=== PATIENT | female | born 1980 | race Caucasian/White ===

== ENCOUNTER 2018-10-09 18:39 | Emergency (ER) | payer BC ==
[~2018-10-09] VITALS: Ht 157.5 cm; Wt 62.1 kg
[~2018-10-09 18:39] MED LIST: OMNIPAQUE 350 MG/ML, 100ML BOTTLE ONE
--- NOTE | 2018-10-09 18:59 | NUR ---
Dr. Bearden at bedside to evaluate pt.
[2018-10-09 19:04] LABS: BASOPHILS # (AUTO) 0.06 x10^3/uL (0-0.1); BASOPHILS % (AUTO) 1 % (0-1); EOSINOPHILS % (AUTO) 0 % (1-7); LYMPHOCYTES # (AUTO) 2.49 x10^3/uL (1-3.4); LYMPHOCYTES % (AUTO) 18 % (22-44); MD NO; MEAN CORPUSCULAR HEMOGLOBIN 31.1 pg (27.0-34.8); MEAN CORPUSCULAR HGB CONC 33.7 g/dL (32.4-35.8); MEAN CORPUSCULAR VOLUME 92.3 fL (80-100); MEAN PLATELET VOLUME 10.1 fL (7.4-10.4); MONOCYTES # (AUTO) 0.69 x10^3/uL (0.2-0.8); MONOCYTES % (AUTO) 5 % (2-9); NEUTROPHILS # (AUTO) 10.39 x10^3/uL (1.8-6.8); NEUTROPHILS % (AUTO) 76 % (42-75); PLATELET COUNT 254 x10^3/uL (130-400); RED BLOOD COUNT 4.62 x10^6/uL (3.82-5.3)
[2018-10-09 19:13] LABS: ALANINE AMINOTRANSFERASE 14 U/L (12-78); ALBUMIN 3.7 g/dL (3.4-5.0); ANION GAP 9 mmol/L (5-15); CALCIUM 8.9 mg/dL (8.5-10.1); CHLORIDE 107 mmol/L (98-107); CREATININE 0.87 mg/dL (0.55-1.02)
[2018-10-09 19:15] LABS: ALKALINE PHOSPHATASE 50 U/L (45-117); BILIRUBIN,TOTAL 0.3 mg/dL (0.2-1.0); TOTAL PROTEIN 7.2 g/dL (6.4-8.2)
--- NOTE | 2018-10-09 19:22 | NUR ---
Pt aware of need for urine sample. Education provided on proper collection technique. EDT at bedside for IV start. Pt aware of plan for CT scan with contrast.
--- NOTE | 2018-10-09 20:09 | NUR ---
Pt resting on gurney, SO in room with pt. Urine sample collected and sent to lab. VSS. Pt's lab work back and knows that she'll go to CT scan shortly.
[2018-10-09 20:25] LABS: HCG UR SG 1.033 (1.003-1.030); MICROSCOPIC AUTO
[2018-10-09 20:33] LABS: CULTURE INDICATED? YES
--- NOTE | 2018-10-09 20:42 | NUR ---
Pt to imaging, with tech, via gutess.
--- NOTE | 2018-10-09 20:54 | NUR ---
Pt back to room from imaging.
[2018-10-09 21:12] VITALS: BP 128/68
--- NOTE | 2018-10-09 21:32 | NUR ---
Dr. Bearden at bedside to discuss ED findings and POC.
--- NOTE | 2018-10-09 21:39 | NUR ---
PIV d/c'd with tip intact.
== END 2018-10-09 22:03 | disposition home or self-care (01) ==
LOC: ED 19:08
DX: A09 Infectious gastroenteritis and colitis, unspecified (principal)
CPT/HCPCS: 36415; 74177; 80053; 81001; 81025; 83690; 85025; 87086; 99284